=== PATIENT | male | born 1955 | race Caucasian/White ===

== ENCOUNTER 2017-06-12 14:48 | Outpatient (CLI) | payer OTHER ==
[2014-10-24 12:06] VITALS: BP 121/86
--- NOTE | 2017-06-12 15:34 | Diagnostic Imaging Report ---
ANABEL MARTE [facility] [id number] Replaced By [facility] [address] [id number] Report Submission Date: Jun 12, 2017 3:21:33 PM CDT Patient Study Name: LUL CHAU Date: Jun 12, 2017 2:58:06 PM CDT Modality Type: DX Gender: M Description: UPPER EXTREMITY : 53 Institution: [facility] Physician: ANABEL MARTE Examination: Plain film left finger History: SECOND DIGIT OF THE LEFT HAND WAS SMASHED WHILE WORKING 5 DAYS AGO (Hx ) / ITS.REASON CRUSHING INJURY TO 2ND DIGIT OF LEFT HAND (DICOM Hx) / ITS.REASON CRUSHING INJURY TO 2ND DIGIT OF LEFT HAND (Pt comments) Comparison exams: None available Findings: 3 views the left 2nd digit demonstrates articular degenerative spurring. No fracture. No dislocation. No soft tissue abnormality. Impression: Degenerative changes. No acute osseous abnormality Electronically signed on Jun 12, 2017 3:21:33 PM CDT by: Zack SCHUSTER
== END 2017-06-12 14:50 ==
LOC: RAD 14:48
PROVIDERS: ATTEND Family Medicine
DX: S67.10XA Crushing injury of unspecified finger(s), initial encounter (principal); Y92.9 Unspecified place or not applicable
CPT/HCPCS: 73140